=== PATIENT | female | born 2000 | race Caucasian/White ===

== ENCOUNTER 2023-10-20 23:45 | Emergency (ER) | payer SELFPAY ==
[~2023-10-20] VITALS: Ht 157.5 cm; Wt 74.8 kg
[2023-10-21 00:15] VITALS: BP 116/70; PULSE 86; RESP 17; TEMP 98; O2SAT 100
[2023-10-21 01:11] LABS: APPEARANCE,URINE HAZY (CLEAR); BILIRUBIN,URINE NEGATIVE (NEGATIVE); BLOOD, URINE 3+ (NEGATIVE); COLOR,URINE YELLOW (YELLOW); LEUKOCYTE ESTERASE ,URINE 3+ (NEGATIVE); NITRITE, URINE NEGATIVE (NEGATIVE); PH,URINE 6.5 (5.0-9.0); PROTEIN,URINE 1+ (NEGATIVE); UGLUCOSE NEGATIVE (NEGATIVE); UROBILINOGEN,URINE 0.2 EU/dL (0.2 - 1)
[2023-10-21] MEDS ORDERED: cefTRIAXone 1,000 MG VIAL ONE (01:16)
[2023-10-21] MEDS ORDERED: LIDOCAINE MPF 1% 5 ML ONE (01:17)
[2023-10-21 01:23] LABS: BACTERIA,URINE 2+ /HPF (None Seen); RBC,URINE 11-20 (MOD) /HPF (0-5); SQUAMOUS EPITHELIAL CELL,UR 0-3 (FEW) /LPF (0-3 (FEW)); WBC,URINE TOO MANY TO COUNT /HPF (0-5)
[2023-10-21] MEDS: cefTRIAXone 1,000 MG in LIDOCAINE MPF 1% 2.1 ML IM ONE (01:27)
[2023-10-21] MEDS: KETOROLAC 60 MG/2 ML VIAL IM ONE (01:28)
[2023-10-21] MEDS ORDERED: CIPR500T4 PO (01:43)
[2023-10-21 01:49] VITALS: BP 116/70; PULSE 86; RESP 17; TEMP 98; O2SAT 100
== END 2023-10-21 01:51 | disposition home or self-care (01) ==
LOC: MED 23:45
DX: N39.0 Urinary tract infection, site not specified (principal); Z79.899 Other long term (current) drug therapy
CPT/HCPCS: 81001; 81025; 87086; 96372; 99284; J0696; J1885; J2001